=== PATIENT | female | born 1975 | race African-American/Black ===

== ENCOUNTER 2020-07-17 15:36 | Emergency (ER) | payer OTHER, SELFPAY ==
[2020-07-17] MEDS ORDERED: Acetaminophen 500 MG TAB ONE (16:47)
== END 2020-07-17 17:45 | disposition home or self-care (01) ==
LOC: CSHERS 15:36
DX: U07.1 COVID-19 (principal); E03.9 Hypothyroidism, unspecified; I48.91 Unspecified atrial fibrillation; Z79.899 Other long term (current) drug therapy
CPT/HCPCS: 71045